=== PATIENT | female | born 1980 | race Caucasian/White ===

== ENCOUNTER 2020-06-07 13:44 | Outpatient (REF) | payer SELFPAY ==
[2020-06-10 05:44] LABS: Patient Race White; SARS-CoV-2 RNA Undetected (Undetected); SARS-CoV-2 Specimen Source Nasal
== END 2020-06-07 14:04 ==
LOC: NCHCN 13:44
PROVIDERS: PCP Internal Medicine; Visit Provider Family Medicine
DX: Z20.828 Contact with and (suspected) exposure to other viral communicable diseases (principal)
CPT/HCPCS: U0003

== ENCOUNTER 2020-08-31 09:00 | Outpatient (REF) | payer OTHER, SELFPAY ==
[2020-08-31 20:54] LABS: Abs Immature Grans 0.09 10^3/uL (0.0-0.06); Absolute Eosinophil Count 0.15 10^3/uL (0.0-0.7); Absolute Lymphocyte Count 2.58 10^3/uL (1.2-3.4); Absolute Monocyte Count 0.34 10^3/uL (0.1-0.8); Absolute Neutrophil Count 4.13 10^3/uL (1.2-6.7); Basophils % 1.4; HGB 13.6 g/dL (11.2-15.7); Immature Grans % 1.2; Lymphocytes % 34.9; MCH 29.2 pg (27.0-33.0); MCHC 32.4 % (32.0-36.0); MCV 90.1 fL (80-95); MPV 10.7 fL (8.0-11.0); Monocytes % 4.6; Neutrophils % 55.9; Nucleated RBC 0 %; Platelet Count 278 10^3/uL (130-400); RBC 4.66 10^6/uL (3.93-5.22); RDW 12.3 % (11.7-14.6); RDW-SD 40.7 fL; WBC 7.39 10^3/uL (4.4-10.8)
[2020-08-31 21:16] LABS: Hemoglobin A1C 5.5 % (<5.7)
[2020-08-31 21:28] LABS: Glucose 105 mg/dL (74-106); Vitamin B12 364 pg/mL (193-986)
[2020-09-03 09:03] LABS: FREE T4 0.88 ng/dL (0.76-1.46)
== END 2020-08-31 09:20 ==
LOC: NCHCN 09:00
PROVIDERS: PCP Internal Medicine; Visit Provider Family Medicine
DX: R20.0 Anesthesia of skin (principal); R20.2 Paresthesia of skin
CPT/HCPCS: 82947; 82607; 83036; 84439; 84443; 85025

== ENCOUNTER 2020-10-26 14:43 | Outpatient (REF) | payer OTHER, SELFPAY ==
[2020-10-26 13:49] LABS: TSH (W/Ref FT4) 2.26 uIU/mL (0.36-3.74)
== END 2020-10-26 15:03 ==
LOC: NCHCN 14:43
PROVIDERS: PCP Internal Medicine; Visit Provider Family Medicine
DX: R94.6 Abnormal results of thyroid function studies (principal)
CPT/HCPCS: 84443

== ENCOUNTER 2021-07-05 10:01 | Outpatient (REF) | payer OTHER, SELFPAY ==
[2021-07-05 14:47] LABS: Hemoglobin A1C 5.9 % (<5.7)
[2021-07-05 15:16] LABS: Calculated LDL 128 mg/dL (<100); Cholesterol 232 mg/dL (<200); HDL Cholesterol 51 mg/dL (40-60); TSH (W/Ref FT4) 1.66 uIU/mL (0.36-3.74); Triglyceride 265 mg/dL (<150); Vitamin B12 382 pg/mL (193-986)
[2021-07-05 19:40] LABS: ALT 43 U/L (14-59); AST 18 U/L (15-37); Alkaline Phosphatase 59 U/L (46-116); BUN 13 mg/dL (7-18); Bilirubin, Total 0.5 mg/dL (0.2-1.0); CREATININE 0.8 mg/dL (0.55-1.02); Calcium 9.1 mg/dL (8.5-10.1); Chloride 104 mmol/L (98-107); Glucose 110 mg/dL (74-106); Potassium 4.2 mmol/L (3.5-5.1); Sodium 139 mmol/L (136-145); Total Protein 7.2 g/dL (6.4-8.2)
[2021-07-08 06:14] LABS: Vitamin D 25 Total 17.7 ng/mL (30-100)
== END 2021-07-05 10:02 | disposition home or self-care (01) ==
LOC: NCHCN 10:01
PROVIDERS: PCP Internal Medicine; Visit Provider Family Medicine
DX: E78.5 Hyperlipidemia, unspecified (principal); R73.03 Prediabetes; E66.3 Overweight; Z78.9 Other specified health status; R94.6 Abnormal results of thyroid function studies; E53.8 Deficiency of other specified B group vitamins
CPT/HCPCS: 80053; 80061; 82306; 82607; 83036; 84443

== ENCOUNTER 2021-09-06 16:20 | Outpatient (REF) | payer OTHER, SELFPAY ==
[2021-09-09 05:43] LABS: Vitamin D 25 Total 19.6 ng/mL (30-100)
== END 2021-09-06 16:21 | disposition home or self-care (01) ==
LOC: NCHCN 16:20
PROVIDERS: PCP Family Medicine; Visit Provider Family Medicine
DX: E55.9 Vitamin D deficiency, unspecified (principal)
CPT/HCPCS: 82306

== ENCOUNTER 2022-12-10 15:59 | Outpatient (REF) | payer BC, SELFPAY ==
--- NOTE | 2022-12-10 15:30 | PAPFT_PTH ---
PATIENT: Skye Saini LOC: [facility] U#:[id number] AGE/SX: 42/F ROOM: RE12/10/[address]: Maggi Mackenzie NP : 1980 BED: DIS: 12/10/2022 SPEC #: [id number] RECD: 12/10/22 18:06 STATUS: ROGERIO REQ #: [id number] VAHID: 12/10/22 15:[address]: Gurdeep WARD,Maggi DEPT: [facility] Cytology RECD BY: Elo Sales ENTERED: 12/10/22 18:07 SP TYPE: PAPFT OTHR DR: Perla Neff Tissues: 1 - CX/ENDOCX FOR PAP SMEARS Procedures: PAP THIN PREP/UVM Screening HPV DNA PROBE Comments: [id number]
== END 2022-12-10 16:00 | disposition home or self-care (01) ==
LOC: LBN 15:59
PROVIDERS: PCP Family Medicine; Visit Provider Nurse Practitioner Women's Health
DX: Z12.4 Encounter for screening for malignant neoplasm of cervix (principal); Z11.51 Encounter for screening for human papillomavirus (HPV)
CPT/HCPCS: 88142; 87624

== ENCOUNTER 2022-12-24 02:08 | Outpatient (CLI) | payer BC, SELFPAY ==
[2022-12-24 10:04] LABS: HCT 40.3 % (36.0-46.0); HGB 13.4 g/dL (11.2-15.7); MCH 29.2 pg (27.0-33.0); MCHC 33.3 % (32.0-36.0); MCV 88 fL (80-95); MPV 9.8 fL (8.0-11.0); Platelet Count 286 10^3/uL (130-400); RBC 4.59 10^6/uL (3.93-5.22); RDW 13.2 % (11.7-14.6); RDW-SD 42.6 fL; WBC 6.18 10^3/uL (4.4-10.8)
[2022-12-24 10:48] LABS: TSH (W/Ref FT4) 2.13 uIU/mL (0.36-3.74)
== END 2022-12-24 02:09 | disposition home or self-care (01) ==
LOC: LBO 02:08
PROVIDERS: PCP Family Medicine; Visit Provider Nurse Practitioner Women's Health
DX: N92.5 Other specified irregular menstruation; N93.8 Other specified abnormal uterine and vaginal bleeding
CPT/HCPCS: 36415; 85027; 84443

== ENCOUNTER 2023-01-09 00:18 | Outpatient (CLI) | payer BC, SELFPAY ==
--- NOTE | 2023-01-09 12:05 | DI.MAMMO_ITS ---
Exam(s) MAMMO SCREENING EXAM: MAMMO SCREENING CLINICAL HISTORY: screening TECHNIQUE: Mammograms were interpreted according to the usual protocol including computer analysis w [employer] CAD system, tomosynthesis and C-view imaging. COMPARISON: None. Baseline examination. FINDINGS: The breasts are composed of heterogeneously dense fibroglandular densities, Breast Density category C . No suspicious masses or suspicious microcalcifications are seen. No skin thickening or abnormal axillary lymph nodes are seen. IMPRESSION: BI-RADS Category 1, Negative mammogram. Yearly screening mammography is recommended. Breast Density Category C, heterogeneously Dense. The mammogram demonstrates the patient's breast tissue is dense. Dense breast tissue is very common a nd is not abnormal but dense breast tissue can make it harder to find cancer on a mammogram. Also, de nse breast tissue may increase breast cancer risk. This information about the result of the mammogram report was provided to the patient to raise their awareness. Use this report when you speak with the patient about their risks for breast cancer, which includes their family history. At that time, you may recommend additional screening tests (Ultrasound or MRI) as they might be useful based on their r isk. A negative radiographic report should not delay biopsy if a dominant or clinically suspicious mass is present. Up to ten percent of cancers are not identified on mammography. A negative report may reinforce clinical impression. Adenosis and dense breasts may obscure an underlying neoplasm. False positive reports average 6 to 10%.
== END 2023-01-09 00:38 ==
LOC: DI 00:18
PROVIDERS: PCP Family Medicine; Visit Provider Nurse Practitioner Women's Health
DX: Z12.31 Encounter for screening mammogram for malignant neoplasm of breast (principal)
CPT/HCPCS: 77063; 77067

== ENCOUNTER → 2024-02-05 00:25 | Outpatient (CLI) | payer BC, SELFPAY ==
--- NOTE | 2024-02-05 11:45 | DI.MAMMO_ITS ---
Exam(s) MAMMO SCREENING EXAM: MAMMO SCREENING CLINICAL HISTORY: screening TECHNIQUE: Mammograms were interpreted according to the usual protocol including computer analysis w [employer] CAD system, tomosynthesis and C-view imaging. COMPARISON: 2022 FINDINGS: The breasts are composed of heterogeneously dense fibroglandular densities, Breast Density category C . No suspicious masses or suspicious microcalcifications are seen. No skin thickening or abnormal axillary lymph nodes are seen. There has been no significant change from prior exams. IMPRESSION: BI-RADS Category 1, Negative mammogram. Yearly screening mammography is recommended. Breast Density Category C, heterogeneously Dense. The mammogram demonstrates the patient's breast tissue is dense. Dense breast tissue is very common a nd is not abnormal but dense breast tissue can make it harder to find cancer on a mammogram. Also, de nse breast tissue may increase breast cancer risk. This information about the result of the mammogram report was provided to the patient to raise their awareness. Use this report when you speak with the patient about their risks for breast cancer, which includes their family history. At that time, you may recommend additional screening tests (Ultrasound or MRI) as they might be useful based on their r isk. A negative radiographic report should not delay biopsy if a dominant or clinically suspicious mass is present. Up to ten percent of cancers are not identified on mammography. A negative report may reinforce clinical impression. Adenosis and dense breasts may obscure an underlying neoplasm. False positive reports average 6 to 10%.
== END ==
PROVIDERS: PCP Family Medicine; Visit Provider Obstetrics & Gynecology
DX: Z12.31 Encounter for screening mammogram for malignant neoplasm of breast (principal); R92.30 Dense breasts, unspecified
CPT/HCPCS: 77063; 77067

== ENCOUNTER 2024-03-04 14:13 | Outpatient (REF) | payer BC, SELFPAY ==
[2024-03-04 15:08] LABS: Hemoglobin A1C 5.7 % (<5.7)
[2024-03-04 15:15] LABS: ALT 42 U/L (14-59); AST 19 U/L (15-37); Albumin 4.1 g/dL (3.4-5.0); Alkaline Phosphatase 67 U/L (46-116); Anion Gap 11.2 mmol/L (3-11); BUN 9 mg/dL (7-18); Bilirubin, Total 0.4 mg/dL (0.2-1.0); CO2 23.8 mmol/L (21.0-32.0); CREATININE 0.9 mg/dL (0.55-1.02); Calcium 9.2 mg/dL (8.5-10.1); Calculated LDL 134 mg/dL (<100); Chloride 103 mmol/L (98-107); Cholesterol 231 mg/dL (<200); Estimated GFR 80.84 (mL/min/1.73m2); Glucose 108 mg/dL (74-106); HDL Cholesterol 47 mg/dL (40-60); Potassium 4.7 mmol/L (3.5-5.1); Sodium 138 mmol/L (136-145); Total Protein 7.6 g/dL (6.4-8.2); Triglyceride 252 mg/dL (<150)
== END 2024-03-04 14:14 | disposition home or self-care (01) ==
LOC: NCHCN 14:13
PROVIDERS: PCP Family Medicine; Visit Provider Family Medicine
DX: R73.03 Prediabetes (principal); E78.5 Hyperlipidemia, unspecified; E66.9 Obesity, unspecified
CPT/HCPCS: 80053; 80061; 83036

== ENCOUNTER 2024-12-02 07:42 | Day surgery (SDC) | payer OTHER, SELFPAY ==
--- NOTE | 2024-12-01 17:51 | W.PM.DSUDISC ---
Date of service: 12/02/24 Discharge Plan Disposition Patient Disposition: Home Condition: Good Discharge Details Reason For Visit: screening colonoscopy Attending Provider: Andrzej Albert Primary Care Provider: Perla Neff Home Meds and New Rx's Prescriptions: Continued norethindrone (contraceptive) 0.35 mg tablet 0.35 mg PO DAILY Qty: 84 4RF ergocalciferol (vitamin D2) [Vitamin D2] 1,250 mcg (50,000 unit) capsule 1,250 mcg PO QWEEK Discontinued bisacodyl [Dulcolax (bisacodyl)] 5 mg tablet,delayed release (DR/EC) 5 mg PO ONCE Qty: 4 0RF Rx Instructions: Take per colonoscopy instructions provided by ordering providers office polyethylene glycol 3350 17 gram/dose powder 17 g PO ONCE Qty: 238 0RF Rx Instructions: Take per colonoscopy instructions provided by ordering providers office Discharge Instructions Instructions: Colon polyps Additional Instructions: Skye, was very she is to meet you today and I hope you do great after the colonoscopy. Everything went very smoothly. I did find to remove 3 polyps today. These will all be sent off to the pathologist test, as they may not even be polyps since they were quite small. Once I have the results of that report, my office will be in touch with recommendations for future screening colonoscopies. If you need anything or have any questions, please do not hesitate to ask. 1. If tolerated, consume a soft, low fiber diet for 1-2 days. 2[address] Do not drive, drink alcohol, operate machinery, make critical decisions, or do activities that require coordination or balance for 24 hours. 3. Because air was put into your colon during the procedure, expelling air from your rectum (passing gas or farting) is normal. 4. You may not have a bowel movement for 1-3 days because of the colonoscopy prep. This is normal. 5. Go directly to the emergency room if you notice any of the following: Develop chills (warm to touch), or if you have a thermometer and your temperature is above 101 Difficulty breathing or difficultly swallowing Persistent vomiting Severe abdominal pain, other than gas cramps Severe chest pain Black, tarry stools Any bleeding ? exceeding one tablespoon 6. Call your physician if the site where your intravenous was started becomes red, swollen, painful, and warm to touch. 7. Your physician has reviewed your pre-procedure medications. Please continue to take those medications as previously ordered. You will be given specific information/education regarding any changes to your medications before leaving. Stand Alone Forms: Anesthesia Discharge Antonieta Allen (DSU) Activity:: Activity as Tolerated Diet:: As Tolerated Discharge Orders Discharge Orders: Discharge Order (Routine); Ordered 12/01/24 Ordered By: Andrzej Albert DS: Diagnosis Discharge Diagnosis (1) Encounter for screening colonoscopy: Status: Acute Asessment and Plan: Follow-up on polypectomy results
--- NOTE | 2024-12-01 17:53 | W.COLOREPORT ---
Date of service: 12/02/24 Time of Service: 09:58 Colonoscopy Report Date of procedure: 12/02/24 Pre-op diagnosis general: screening colonoscopy Post-op diagnosis procedure note: other (Colon polyps) Procedure: colonoscopy with polypectomy Surgeon: Andrzej Albert Anesthesia Type: General:No Airway Estimated blood loss (mL): 5 Pathology: other (0.25 cm flat polyp at 90 cm, 0.25 cm flat polyp at 65 cm, 0.25 cm flat polyp at 40 cm) Complications: None Disposition: same day Indications: Skye is a 44 year old woman who needs her first screening colonoscopy Prep: Miralax/Dulcolax Procedure Start Time: 09:27 Procedure End Time: 09:48 Retraction Time: 10 Findings: 0.25 cm flat polyp at 90 cm, 0.25 cm flat polyp at 65 cm, 0.25 cm flat polyp at 40 cm Procedure Description: After the induction of monitored anesthetic care, and with the patient in left lateral decubitus position, I began by performing an external anorectal exam.? There are some external hemorrhoids, but otherwise it appears normal.? Next, I performed a digital rectal exam.? I did not appreciate any abnormal findings.? Next, I advanced a colonoscope into the rectal vault.? I performed retroflexion.? This appeared normal.? Using insufflation, I then advanced the colonoscope beyond the rectal folds and into the sigmoid colon before advancing towards the cecum.? The quality of the prep was excellent.? The scope was noted to be in the cecum by identification of the ileocecal valve and appendiceal orifice.? I then began withdrawing the colonoscope using repeated irrigation as necessary for full evaluation of the colonic mucosa. Around 90 cm from the anal verge was a 0.25 cm flat polyp. This was removed with cold forceps with minimal bleeding. Another 0.25 cm flat polyp was found at 65 cm. This was also removed with cold forceps without any issues. Around 40 cm from the anal verge was a small area of prominent mucosal tissue. Narrowband imaging was used to assist with the analysis of this. Generally, it appears a little more consistent with benign lymphoid aggregate, but to be safe, I did perform cold forcep polypectomy is here as well. There is no bleeding from the site. Once the scope was withdrawn to the level of the rectum, great care was taken to examine portions of the rectal folds.? Finally, the scope was withdrawn and the patient was brought to the same-day surgery recovery unit as the anesthetic wore off. ?The findings and instructions were shared with the patient prior to discharge. [place] Bowel Prep [place] Bowel Prep Right Colon: 3 Left Colon: 3 Transverse Colon: 3 Total Score: 9
[2024-12-02 08:02] VITALS: BP 119/84; PULSE 77; RESP 16; TEMP 36.5; O2SAT 100
[2024-12-02] MEDS: Lactated Ringers 1,000 ML 80 ML IV (09:02)
--- NOTE | 2024-12-02 09:14 | ANES.PREOP_ITS ---
General Info Date of Service Date Performed: 12/02/24 Height: 5 ft 2.5 in Weight: 75.6 kg Body Mass Index (BMI): 29.9 Surgical Procedure: Operation Date: 12/02/24 09:05 Proposed Procedure Side Surgeon p Colonoscopy Andrzej Albert MD Actual Procedure Side Surgeon p Colonoscopy Andrzej Albert MD Meds Allergies and Home Medications Allergies Allergy/AdvReac Type Severity Reaction Status Date / Time melon AdvReac Intermediate Rash, GI Verified 12/02/24 08:05 upset acetaminophen (From Vicodin) AdvReac Mild Dizziness/L Verified 12/02/24 08:18 ighthead hydrocodone (From Vicodin) AdvReac Mild Dizziness/L Verified 12/02/24 08:18 ighthead Sunscreen AdvReac Intermediate Rash, Uncoded 12/02/24 08:05 blisters Home Medication ?Medication ?Instructions ?Recorded norethindrone (contraceptive) 0.35 0.35 mg PO DAILY #84 tabs 12/18/23 mg tablet ergocalciferol (vitamin D2) 1,250 1,250 mcg PO QWEEK 04/26/24 mcg (50,000 unit) capsule (Vitamin D2) Current Visit Medications: Current Medications Generic Name Dose Route Start Last Admin Trade Name Freq PRN Reason Stop Dose Admin Ringer's Solution 1,000 mls @ 80 mls/hr 12/02/24 06:00 IV 12/02/24 23:59 INFUSION MAX IV Miscellaneous Supplies 1 each 12/02/24 06:00 Iv Access IV 12/02/24 23:59 DIRECTED MAX Ondansetron HCl 4 mg 12/01/24 17:54 Ondansetron 4 Mg/2 Ml Vial IVP 12/31/24 17:53 Q4H PRN PRN Nausea / Vomiting Sodium Chloride 0 ml 12/02/24 06:00 Normal Saline Flush 10 Ml Syr IV 12/02/24 23:59 PRN PRN Sodium Chloride 0 ml 12/02/24 06:00 Normal Saline 10 Ml Vial IJ 12/02/24 23:59 DIRECTED PRN Sterile Water 0 ml 12/02/24 06:00 Water,Injection,Sterile 10 Ml Vial IJ 12/02/24 23:59 DIRECTED PRN PFSH Active Problems Active Problems: Problem Status Onset Code Encounter for screening colonoscopy Acute Z12.11 MACARIO (stress urinary incontinence, female) Acute N39.3 Medical History Medical History Obesity Hyperlipidemia Vitamin D deficiency Vitamin B deficiency Dysfunctional uterine bleeding Improved on norethindrone Surgical History Surgical History Hx of wisdom tooth extraction No pertinent past surgical history Tobacco Smoking/Tobacco Use Status: Former Tobacco Use Alcohol Alcohol Intake: current Alcohol intake frequency: holidays/special occasions only Substance Use Substance use: Never Substance use type: does not use Prental History History 1 Para 1 Hx # Term Pregnancies Multiple births Hx # Pregnancies 1 Ectopic pregnancies AB induced Hx Number of Living Children AB spontaneous Vital Signs and Lab Results Vital Signs Most Recent Vital Signs in EMR: Most Recent Vital Signs Temp Pulse Resp BP Pulse Ox 36.5 C 77 16 119/84 100 12/02/24 08:02 12/02/24 08:02 12/02/24 08:02 12/02/24 08:02 12/02/24 08:02 Point of Care Results Point of Care Results: POC- Test(urine) Negative 12/02/24 08:15 Lab Results Blood Type / Crossmatch: No Data to Display Complete Blood Count: No Data to Display Complete Metabolic Panel: No Data to Display Liver Function Panel: No Data to Display Coagulation Panel: No Data to Display Cardiac Panel: No Data to Display Arterial Blood Gas: No Data to Display Venous Blood Gas: No Data to Display Pancreas Panel: No Data to Display Thyroid Panel: No Data to Display Infectious Disease: No Data to Display Blood Cultures: 2 No Data to Display Toxicology Panel: No Data to Display Panel: No Data to Display Anesthesia Assessment and Plan Anesthesia History Personal History: No History of Anesthesia Complications Family History: Family History Unknown Exercise Tolerance Exercise Tolerance: Metabolic Equivalents>4 Pertinent Negatives Pertinent Negatives: No Symptoms of GERD, No Major Cardiovascular Symptoms or Complaints, No Major Pulmonary Symptoms or Complaints and No History of CVA/TIA Cardiac & Pulmonary Exam Cardiac Exam: Normal S1/S2 Heart Sounds Pulmonary Exam: Clear Bilateral Breath Sounds Implantable Cardiac Device Does patient have a Pacemaker or an ICD?: No Airway Exam Known Difficult Airway: No Mallampati Class: 2 Mouth Opening: Normal (> 3cm) Thyromental Distance: Greater than 3 cm Neck Range of Motion: Full ROM Neck Circumference: Normal Teeth Condition: Normal Dentition ASA Classification ASA Score: ASA 2 Emergency Case?: No NPO Status NPO Status: NPO Clears >2 hours, Solids >8 hours Status Status: Negative HCG Anesthesia Plan Resuscitation Status: Full Code Anesthesia Technique: General Anesthesia Airway Planned: Natural Airway Monitors Used: Standard Monitors
[2024-12-02 09:15] VITALS: BMI 29.9
--- NOTE | 2024-12-02 09:41 | BOWEL_PTH ---
PATIENT: Skye Saini LOC: [facility] U#:[id number] AGE/SX: 44/F ROOM: RE12/02/[address]: Andrzej Albert MD : 1980 BED: DIS: 12/02/2024 SPEC #: [id number] RECD: 12/02/24 12:19 STATUS: ROGERIO RE #: [id number] VAHID: 12/02/24 09:[address]: Andrzej Albert DEPT: Surgical Specimen RECD BY: Elo Sales ENTERED: 12/02/24 12:21 SP TYPE: Bowel OTHR DR: Perla Neff Tissues: 1 - BIOPSY BOWEL 2 - BIOPSY BOWEL 3 - BIOPSY BOWEL Procedures: GROSS AND MICRO LEVEL 4 Comments: [id number]
[2024-12-02 09:52] VITALS: BP 103/58; PULSE 68; RESP 16; TEMP 35.9; O2SAT 98
--- NOTE | 2024-12-02 10:15 | W.ANESPOSTOP ---
Postoperative Evaluation Date, Time and Location Date Performed: 12/02/24 Time Performed: 10:15 Patient Location: Day Surgery Unit Vital Signs Most Recent Imported Vital Signs: Most Recent Vital Signs Temp Pulse Resp BP Pulse Ox 35.9 C L 68 16 103/58 L 98 12/02/24 09:52 12/02/24 09:52 12/02/24 09:52 12/02/24 09:52 12/02/24 09:52 Pain Score Most Recent Pain Score: Most Recent Pain Score Pain Level 0 12/02/24 09:52 Assessment Mental Status: Awake (Alert & Oriented to Patient Baseline) Airway and Respiratory Function: Patent airway with normal (patient baseline) respiratory exam Cardiovascular Function: Hemodynamically Stable Hydration Status: Adequately Hydrated Nausea & Vomiting: No Nausea or Vomiting Pain: Pt. Denies Any Pain Peripheral Nerve Block: Patient did not receive a nerve block
[2024-12-02 10:23] VITALS: BP 108/74; PULSE 54; RESP 16; TEMP 36.3; O2SAT 100
== END 2024-12-02 10:25 | disposition home or self-care (01) ==
PROVIDERS: PCP Family Medicine; Visit Provider Surgery
PROC: 0DJD8ZZ Inspection of Lower Intestinal Tract, Via Natural or Artificial Opening Endoscopic (ICD-10-PCS; CPT 45378; principal; 2024-12-02 09:00)
DX: Z12.11 Encounter for screening for malignant neoplasm of colon (principal); D12.5 Benign neoplasm of sigmoid colon; K64.4 Residual hemorrhoidal skin tags; D12.4 Benign neoplasm of descending colon; D12.3 Benign neoplasm of transverse colon
CPT/HCPCS: 45380; 81025; 88305; J2704

== ENCOUNTER 2025-02-10 00:02 | Outpatient (CLI) | payer OTHER, SELFPAY ==
--- NOTE | 2025-02-10 12:18 | DI.MAMMO_ITS ---
Exam(s) MAMMO SCREENING EXAM: MAMMO SCREENING CLINICAL HISTORY: screening. TECHNIQUE: Bilateral full field digital CC and MLO mammographic images were obtained with 3D tomosyn thesis and utilizing computer aided detection (CAD). COMPARISON: Prior mammograms were reviewed. FINDINGS: The fibroglandular tissue pattern is again noted be dense, this somewhat decreasing the sensitivity o f the mammogram for finding hidden underlying lesions In the right breast on the MLO view there is a suggestion a possible 7 x 5 mm nodule located 3.5 cm i n from nipple. Further imaging recommended. In the left breast on the CC view there is a subtle suggestion of a nodular density measuring 10 by 9 mm, located 3 cm in from the nipple on the CC view, medial of center. Further imaging required There are no malignant-appearing microcalcification groups in either breast. There is no significant architectural distortion nor skin thickening-retraction. IMPRESSION: Dense bilateral fibroglandular tissue. Suggestion of 1 nodule in each breast as described above. Bi lateral spot compression views and bilateral complete breast ultrasound recommended. BI-RADS Category 0 - Incomplete: Need additional imaging evaluation Breast Density - Category C - The breast are heterogeneously dense, which may obscure small masses. Breast density Category C or D implies that the patient has dense breast tissue. Dense breast tissue can make it harder to find cancer on a mammogram. Dense breast tissue is also associated with an incr eased risk of breast cancer. This information about the result of the mammogram report was provided to the patient to raise their awareness. Use this report when you speak with the patient about their risks for breast cancer, which includes their family history. At that time, you may recommend additional screening tests (Ultrasoun d or MRI) as these tests may add significant information. A negative radiographic report should not delay biopsy if a dominant or clinically suspicious mass is present. Up to ten percent of cancers are not identified on mammography. A negative report may reinforce clinical impression. Adenosis and dense breasts may obscure an underlying neoplasm. False positive reports average 6 to 10%. Patient will receive a letter notifying them of these results.
== END 2025-02-10 00:22 ==
LOC: DI 00:02
PROVIDERS: PCP Family Medicine; Visit Provider Obstetrics & Gynecology
DX: Z12.31 Encounter for screening mammogram for malignant neoplasm of breast (principal); R92.333 Mammographic heterogeneous density, bilateral breasts
CPT/HCPCS: 77063; 77067

== ENCOUNTER 2025-02-17 00:25 | Outpatient (CLI) | payer OTHER, SELFPAY ==
--- NOTE | 2025-02-17 | DI.US_ITS ---
Exam(s) US BREAST LT COMPLETE US BREAST RT COMPLETE MG MAMMO SCREEN CALL BACK BI EXAM: MG MAMMO SCREEN CALL BACK BI CLINICAL HISTORY: F/U MAMMO, R92.8,SUGGESTION OF RT BREAST NODULE, SUGGESTION OF LT. TECHNIQUE: Spot compression digital Mammography views of the bothbreasts with Tomosynthesis followe d by bilateral breast ultrasound. COMPARISON: MG MG MAMMO SCREENING from 01/09/2023 MG MG MAMMO SCREENING from 02/05/2024 MG MG MAMMO SCREENING from 02/10/2025 US US BREAST RT COMPLETE from 02/17/2025 US US BREAST LT COMPLETE from 02/17/2025 FINDINGS: RIGHT BREAST: Mammography/Tomosynthesis: Masses/Architectural Distortion: None seen. Microcalcifictions: No suspicious pleomorphic-type are seen. Skin Thickening/Nipple Retraction: None. Right breast US: Echotexture: Normal appearance of the glandular tissue. Shadowing: No suspicious foci. Cyst: None. Solid lesions: Questionable 4 millimeter hypoechoic circumscribed nodule in the 6 o'clock within dens e tissue. Proteinaceous cyst versus small fibroadenoma. Ductal dilation: None. LEFT BREAST: Mammography/Tomosynthesis: Masses/Architectural Distortion: None seen. Microcalcifictions: No suspicious pleomorphic-type are seen. Skin Thickening/Nipple Retraction: None. Left breast ultrasound: Echotexture: Normal appearance of the glandular tissue. Shadowing: No suspicious foci. Cyst: None. Solid lesions: 4 x 5 millimeter circumscribed hypoechoic nodule 10 o'clock position 1 cm from the nip ple, proteinaceous cyst versus fibroadenoma. There is a question of a roughly 6 x 5 x 5 nodule in th e retroareolar region which is difficult to evaluate due to shadowing from the nipple. Ductal dilation: None. IMPRESSION: 1. Right breast: No evidence of malignancy is noted.Recommend screening mammography in 1 year. 2. Left breast: Question of an area of nodularity in the retroareolar region. Six-month follow-up ul trasound recommended. 3.The findings were discussed with the patient on the date of the examination. BI-RADS Category 3 - 6 month - Probably Benign Finding: Recommend follow-up mammography in 6 months Breast Density - Category C - The breast are heterogeneously dense, which may obscure small masses. Additional imaging recommended to include ultrasound or additional mammographic imaging as indicated. Breast density Category C or D implies that the patient has dense breast tissue. Dense breast tissue can make it harder to find cancer on a mammogram. Dense breast tissue is also associated with an incr eased risk of breast cancer. This information about the result of the mammogram report was provided to the patient to raise their awareness. Use this report when you speak with the patient about their risks for breast cancer, which includes their family history. At that time, you may recommend additional screening tests (Ultrasoun d or MRI) as these tests may add significant information. A negative radiographic report should not delay biopsy if a dominant or clinically suspicious mass is present. Up to ten percent of cancers are not identified on mammography. A negative report may reinforce clinical impression. Adenosis and dense breasts may obscure an underlying neoplasm. False positive reports average 6 to 10%. Patient will receive a letter notifying them of these results.
== END 2025-02-17 00:45 ==
LOC: DI 00:27
PROVIDERS: PCP Family Medicine; Visit Provider Obstetrics & Gynecology
DX: Z12.31 Encounter for screening mammogram for malignant neoplasm of breast (principal); R92.8 Other abnormal and inconclusive findings on diagnostic imaging of breast; D24.2 Benign neoplasm of left breast; R92.333 Mammographic heterogeneous density, bilateral breasts
CPT/HCPCS: 76642; 77063; 77067

== ENCOUNTER 2025-09-01 09:11 | Outpatient (REF) | payer OTHER, SELFPAY ==
[2025-09-01 16:06] LABS: Hemoglobin A1C 5.5 % (<5.7)
[2025-09-01 17:22] LABS: Vitamin D 25 Total 12 ng/mL (30-100)
[2025-09-01 17:29] LABS: ALT 18 U/L (10-49); AST 17 U/L (<34); Albumin 4.3 g/dL (3.2-5.0); Alkaline Phosphatase 63 U/L (46-116); Anion Gap 10.3 mmol/L (3-11); BUN 15 mg/dL (9-23); Bilirubin, Total 0.40 mg/dL (0.2-1.2); CO2 23.7 mmol/L (20.0-31.0); Calcium 9.3 mg/dL (8.3-10.6); Chloride 105 mmol/L (98-107); Cholesterol 232 mg/dL (<200); Glucose 109 mg/dL (74-106); HDL Cholesterol 45 mg/dL (>40); Potassium 4.3 mmol/L (3.5-5.1); Sodium 139 mmol/L (136-145); Total Protein 6.9 g/dL (5.7-8.2)
== END 2025-09-01 09:12 | disposition home or self-care (01) ==
LOC: NCHCN 09:11
PROVIDERS: PCP Family Medicine; Visit Provider Family Medicine
DX: E78.5 Hyperlipidemia, unspecified (principal); E55.9 Vitamin D deficiency, unspecified; R73.03 Prediabetes; E66.9 Obesity, unspecified
CPT/HCPCS: 80053; 80061; 82306; 83721; 83036